=== PATIENT | female | born 1985 | race African-American/Black ===

== ENCOUNTER 2018-04-24 19:59 | Emergency (ER) | payer BC ==
[2018-04-24] MEDS ORDERED: IBUPROFEN 800 MG TABLET PO ONE (21:44)
--- NOTE | 2018-04-24 22:06 | ER Document Report ---
HPI - HPI Patient complains to provider of: Fever Pain Level: 5 Context: Patient is a 33-year-old female presenting to the emergency department complaining of a fever for the last 3 days. Patient states T-max was 102.7 Fahrenheit at home prior to arrival. Patient states last time she took any antipyretics was at 1630 today. Patient also admits to a cough, congestion, headache, body aches. Patient states she also feels as though sometimes it is hard to take a deep breath. Patient stated on day 1 of fever she did have one episode of nonbloody diarrhea. Patient denies any nausea or vomiting. Patient does admit to dysuria today, denies any vaginal discharge. Patient denies chest pain, abdominal pain. Past medical history: None Medications: None Allergies: None Surgical history: section x2 Patient denies illicit drug use, cigarette smoking, admits to occasional EtOH use - CONSTITUTIONAL Constitutional: REPORTS: Fever, Chills - REPRODUCTIVE Reproductive: DENIES: : Past Medical History - General Information source: Patient - Social History Smoking Status: Never Smoker Chew tobacco use (# tins/day): No Frequency of alcohol use: Occasional Drug Abuse: None Lives with: Family Family History: Reviewed & Not Pertinent Patient has suicidal ideation: No Patient has homicidal ideation: No Renal/ Medical History: Denies: Hx Peritoneal Dialysis Past Surgical History: Reports: Hx Section - X2 - Immunizations Hx Diphtheria, Pertussis, Tetanus Vaccination: Yes Vertical Provider Document - CONSTITUTIONAL Agree With Documented VS: Yes Notes: GENERAL: Alert, interacts well. No acute distress. HEAD: Normocephalic, atraumatic. No frontal or maxillary sinus tenderness EYES: Pupils equal, round, and reactive to light. Extraocular movements intact. ENT: Oral mucosa moist, tongue midline. Nares patent, swollen turbinates bilaterally, TM's intact, nonerythematous, nonbulging. Pharynx minorly erythematous, no palatal petechiae or exudate noted NECK: Full range of motion. Supple. Trachea midline. No lymphadenopathy appreciated LUNGS: Clear to auscultation bilaterally, no wheezes, rales, or rhonchi. No respiratory distress. HEART: Tachycardic rate and rhythm. No murmur ABDOMEN: Soft, non-tender. Non-distended. Bowel sounds present in all 4 quadrants. EXTREMITIES: Moves all 4 extremities spontaneously. No edema, normal radial and dorsalis pedis pulses bilaterally. No cyanosis. BACK: no cervical, thoracic, lumbar midline tenderness. No saddle anesthesia, normal distal neurovascular exam. No CVA tenderness bilaterally NEUROLOGICAL: Alert and oriented x3. Normal speech. cranial nerves II through XII grossly intact PSYCH: Normal affect, normal mood. SKIN: Warm, dry, normal turgor. No rashes or lesions noted. - INFECTION CONTROL TRAVEL OUTSIDE OF THE [place] IN LAST 30 DAYS: No Course - Re-evaluation Re-evalutation: 04/24/18 23:05 Discussed with patient at bedside urinary tract infection diagnosis. Also discussed upper respiratory infection. Discussed home treatments for same. Patient states she feels a lot better after medication administration in the emergency room. Patient was also able to drink a large bottle of Gatorade while in the emergency department. Close return precautions discussed - Vital Signs Vital signs: Temp Pulse Resp BP Pulse Ox 103.0 F H 120 H 18 114/62 100 04/24/18 20:13 04/24/18 20:13 04/24/18 20:13 04/24/18 20:13 04/24/18 20:13 Discharge - Discharge Clinical Impression: Viral syndrome Upper respiratory infection Qualifiers: URI type: unspecified viral URI Qualified Code(s): J06.9 - Acute upper respiratory infection, unspecified Urinary tract infection Qualifiers: Urinary tract infection type: acute cystitis Hematuria presence: with hematuria Qualified Code(s): N30.01 - Acute cystitis with hematuria Condition: Stable Disposition: HOME, SELF-CARE Instructions: Acetaminophen, Cephalexin ([facility]), Upper Respiratory Illness ([facility]) , Urinary Tract Infection ([facility]), Viral Syndrome ([facility]) Additional Instructions: You have been seen and treated in the emergency department for an upper respiratory infection. These are caused by viruses so they do not respond to antibiotics. You should take prescription medications as prescribed. You should also stay well-hydrated and get plenty of rest. Please make an appointment with your primary care provider in the next 24-48 hours. Please return to the emergency room for any other worsening symptoms. Upper respiratory infections caused by viruses can last anywhere from 7-10 days. You have also been seen and treated in the emergency department for a urinary tract infection. Please take antibiotics as prescribed. Please return to the emergency room for any other worsening symptoms Prescriptions: Benzonatate [Tessalon Perles 100 mg Capsule] 100 mg PO Q8HP PRN #40 capsule PRN Reason: Cephalexin Monohydrate [Keflex 500 mg Capsule] 500 mg PO BID 7 Days #14 capsule Ibuprofen [Motrin 800 mg Tablet] 800 mg PO Q8H PRN #30 tab PRN Reason: Mometasone Furoate [Nasonex] 1 spray NS Q12 #1 spray.pump Forms: Return to Work
--- NOTE | 2018-04-24 22:37 | RADIOLOGY REPORT (SQ) ---
EXAM DESCRIPTION: XR CHEST 2 VIEWS COMPLETED DATE/TME: 04/24/2018 21:55 CLINICAL HISTORY: 33 years, Female, SOB COMPARISON: None. NUMBER OF VIEWS: 2 TECHNIQUE: Frontal and lateral views of the chest LIMITATIONS: None. FINDINGS: The heart size is normal. Lungs are clear. No pneumothorax IMPRESSION: Negative chest 2010 [facility] [employer]- All Rights Reserved
[2018-04-24 22:55] LABS: APPEARANCE,URINE SLIGHTLY-CLOUDY; BILIRUBIN,URINE NEGATIVE (NEGATIVE); COLOR,URINE AMBER; GLUCOSE, URINE NEGATIVE (NEGATIVE); KETONES,URINE NEGATIVE (NEGATIVE); LEUKOCYTE ESTERASE,URINE LARGE (NEGATIVE); NITRITE,URINE POSITIVE (NEGATIVE); PROTEIN,URINE 30 mg/dL (NEGATIVE); URINE SPECIFIC GRAVITY 1.025
[2018-04-24 23:32] VITALS: BP 100/62
== END 2018-04-24 23:15 | disposition home or self-care (01) ==
LOC: ER 19:59
DX: J06.9 Acute upper respiratory infection, unspecified (principal); N30.01 Acute cystitis with hematuria; B34.9 Viral infection, unspecified; R50.9 Fever, unspecified; R05 Cough; R09.81 Nasal congestion; R51 Headache; M79.10 Myalgia, unspecified site; R19.7 Diarrhea, unspecified
CPT/HCPCS: 71046; 81001; 81025; 99284

== ENCOUNTER → 2018-04-27 | Outpatient (CLI) | payer BC ==
[2018-04-27 14:46] LABS: ABSOLUTE LYMPHOCYTES (AUTO) 1.3 10^3/uL (0.5-4.7); ABSOLUTE MONOCYTES (AUTO) 0.3 10^3/uL (0.1-1.4); ABSOLUTE NEUT (AUTO) 5.9 10^3/uL (1.7-8.2); BASOPHILS % (AUTO) 0.3 % (0-2); EOSINOPHILS % (AUTO) 0.1 % (0-6); HEMATOCRIT 35.3 % (36.0-47.0); LYMPHOCYTES % (AUTO) 16.9 % (13-45); MEAN CORPUSCULAR VOLUME 83 fl (80-97); MONOCYTES % (AUTO) 4.4 % (3-13); PLATELET COUNT 200 10^3/uL (150-450); RED BLOOD COUNT 4.28 10^6/uL (3.72-5.28); RED CELL DISTRIBUTION WIDTH 13.8 % (11.5-14.0); SEGMENTED NEUTROPHILS % (AUTO) 78.3 % (42-78); TOTAL CELLS COUNTED % (AUTO) 100 %; WHITE BLOOD COUNT 7.5 10^3/uL (4.0-10.5)
[2018-04-27 15:05] LABS: A TYPE INFLUENZA AG NEGATIVE (NEGATIVE); B INFLUENZA AG NEGATIVE (NEGATIVE)
== END ==
LOC: OD 13:43
PROVIDERS: ATTEND Nurse Practitioner Acute Care
DX: R50.9 Fever, unspecified (principal); M54.5 Low back pain
CPT/HCPCS: 36415; 85025; 87040; 87086; 87804

== ENCOUNTER 2018-04-29 22:24 | Emergency (ER) | payer BC ==
[2018-04-29] MEDS ORDERED: IBUPROFEN 800 MG TABLET PO ONE (23:05)
[2018-04-29] MEDS ORDERED: NORMAL SALINE 1000 ML 1,000 ML IV ONE (23:06)
--- NOTE | 2018-04-29 23:13 | ER Document Report ---
ED Fever - General Chief Complaint: Fever Stated Complaint: WEAKNESS Time Seen by Provider: 04/29/18 23:02 Notes: Patient is a 33-year-old female presenting to the emergency department complaining of a fever for the last 7 days. Patient states T-max was 103 Fahrenheit at home prior to arrival. Patient states last time she took any antipyretics was at 1600 today. Patient also admits to a cough, congestion, headache, body aches. Patient states she also feels as though sometimes it is hard to take a deep breath. Patient stated on day 1 of fever she did have one episode of nonbloody diarrhea. Patient denies any nausea or vomiting. Patient does admit to dysuria today, denies any vaginal discharge. Patient denies chest pain, abdominal pain. Past medical history: None Medications: None Allergies: None Surgical history: section x2 Patient denies illicit drug use, cigarette smoking, admits to occasional EtOH use TRAVEL OUTSIDE OF THE [place] IN LAST 30 DAYS: No - Related Data Allergies/Adverse Reactions: No Known Allergies Allergy (Verified 05/28/15 13:15) Past Medical History - General Information source: Patient - Social History Smoking Status: Never Smoker Frequency of alcohol use: None Drug Abuse: None Lives with: Family Family History: Reviewed & Not Pertinent Patient has suicidal ideation: No Patient has homicidal ideation: No Renal/ Medical History: Denies: Hx Peritoneal Dialysis Past Surgical History: Reports: Hx Section - X2, Hx Tubal Ligation - Immunizations Hx Diphtheria, Pertussis, Tetanus Vaccination: Yes Review of Systems - Review of Systems Constitutional: See HPI EENT: See HPI Cardiovascular: See HPI Respiratory: See HPI Gastrointestinal: See HPI Genitourinary: See HPI Female Genitourinary: See HPI Musculoskeletal: No symptoms reported Skin: No symptoms reported Hematologic/Lymphatic: No symptoms reported Neurological/Psychological: No symptoms reported Physical Exam - Vital signs Vitals: Temp Pulse Resp BP Pulse Ox 103.1 F H 110 H 16 124/63 99 04/29/18 22:43 04/29/18 22:43 04/29/18 22:43 04/29/18 22:43 04/29/18 22:43 - Notes Notes: GENERAL: Alert, interacts well. No acute distress. HEAD: Normocephalic, atraumatic. No frontal or maxillary sinus tenderness EYES: Pupils equal, round, and reactive to light. Extraocular movements intact. ENT: Oral mucosa moist, tongue midline. Nares patent, TM's intact nonerythematous, nonbulging NECK: Full range of motion. Supple. Trachea midline. No lymphadenopathy appreciated no nuchal rigidity noted LUNGS: Clear to auscultation bilaterally apices, no wheezes, rales. No respiratory distress. Rhonchi heard left lower lobe, left upper lobe clear. No wheezes heard throughout HEART: Tachycardic rate and rhythm. No murmur ABDOMEN: Soft, non-tender. Non-distended. Bowel sounds present in all 4 quadrants. EXTREMITIES: Moves all 4 extremities spontaneously. No edema, normal radial and dorsalis pedis pulses bilaterally. No cyanosis. BACK: no cervical, thoracic, lumbar midline tenderness. No saddle anesthesia, normal distal neurovascular exam. No CVA tenderness bilaterally NEUROLOGICAL: Alert and oriented x3. Normal speech. cranial nerves II through XII grossly intact PSYCH: Normal affect, normal mood. SKIN: Warm, dry, normal turgor. No rashes or lesions noted. Course - Re-evaluation Re-evalutation: Initially patient was denying a headache but states she does have a history of migraines. Nurse brings to my attention that the patient states she thinks she is developing a migraine and is requesting medication for same. Medications administered relieved patient's headache she is currently headache free. Continues without nuchal rigidity. Full range of motion of her head and neck without difficulty. Patient's labs reveal leukocytosis of 11.3. Sodium is 134 2 L of normal saline solution were also given. Fever has resolved with treatments in the emergency room. Discussed chest x-ray results with the patient at bedside. Discussed need to continue antibiotics for urinary tract infection which she was diagnosed with upon last visit and starting new antibiotics. Close return precautions discussed. Patient leaves the emergency room afebrile and not tachycardic. - Vital Signs Vital signs: Temp Pulse Resp BP Pulse Ox 99.4 F 110 H 22 H 102/66 98 04/30/18 01:19 04/29/18 22:46 04/30/18 01:19 04/30/18 01:19 04/30/18 01:19 - Laboratory Result Diagrams: 04/29/18 23:00 04/29/18 23:00 Laboratory results interpreted by me: 04/29/18 04/29/18 04/29/18 23:00 23:00 23:46 WBC 11.3 H Hgb 10.6 L Hct 31.4 L Seg Neutrophils % 83.4 H Lymphocytes % 12.7 L Absolute Neutrophils 9.4 H Sodium 134.0 L Chloride 94 L Glucose 130 H Calcium 8.3 L AST 41 H Urine Ketones TRACE H Urine Blood SMALL H Discharge - Discharge Clinical Impression: Pneumonia Qualifiers: Pneumonia type: due to unspecified organism Laterality: left Lung location: lower lobe of lung Qualified Code(s): J18.1 - Lobar pneumonia, unspecified organism Condition: Stable Disposition: HOME, SELF-CARE Instructions: Fever ([facility]), Pneumonia ([facility]) Additional Instructions: You should continue to take antibiotics for your urinary tract infection. You should also take the antibiotics I prescribed tonight for pneumonia. Please continue to take Tylenol and Motrin for fevers at home. Please make sure you are staying well-hydrated and getting plenty of rest. Please return to the emergency room for any other concerning symptoms. Prescriptions: Doxycycline Hyclate 100 mg PO BID #14 capsule Forms: Return to Work Referrals: FABBY MOLINA NP [NURSE PRACTITIONER] - Follow up as needed
[2018-04-29 23:44] LABS: ABSOLUTE LYMPHOCYTES (AUTO) 1.4 10^3/uL (0.5-4.7); ABSOLUTE MONOCYTES (AUTO) 0.4 10^3/uL (0.1-1.4); ABSOLUTE NEUT (AUTO) 9.4 10^3/uL (1.7-8.2); BASOPHILS % (AUTO) 0.4 % (0-2); EOSINOPHILS % (AUTO) 0.1 % (0-6); HEMATOCRIT 31.4 % (36.0-47.0); HEMOGLOBIN 10.6 g/dL (12.0-15.5); LYMPHOCYTES % (AUTO) 12.7 % (13-45); MEAN CORPUSCULAR HEMOGLOBIN 27.6 pg (27.0-33.4); MEAN CORPUSCULAR HGB CONC 33.6 g/dL (32.0-36.0); MEAN CORPUSCULAR VOLUME 82 fl (80-97); MONOCYTES % (AUTO) 3.4 % (3-13); PLATELET COUNT 320 10^3/uL (150-450); RED BLOOD COUNT 3.83 10^6/uL (3.72-5.28); SEGMENTED NEUTROPHILS % (AUTO) 83.4 % (42-78); TOTAL CELLS COUNTED % (AUTO) 100 %; WHITE BLOOD COUNT 11.3 10^3/uL (4.0-10.5)
[2018-04-29 23:53] LABS: A TYPE INFLUENZA AG NEGATIVE (NEGATIVE)
[2018-04-29 23:54] LABS: B INFLUENZA AG NEGATIVE (NEGATIVE)
[2018-04-29 23:55] LABS: ALANINE AMINOTRANSFERASE 29 U/L (9-52); ALBUMIN 3.6 g/dL (3.5-5.0); ALKALINE PHOSPHATASE 106 U/L (38-126); ANION GAP 14 (5-19); ASPARTATE AMINO TRANSFERASE 41 U/L (14-36); BILIRUBIN,DIRECT 0.2 mg/dL (0.0-0.4); BILIRUBIN,TOTAL 0.7 mg/dL (0.2-1.3); BLOOD UREA NITROGEN 8 mg/dL (7-20); CALCIUM 8.3 mg/dL (8.4-10.2); CARBON DIOXIDE 26 mmol/L (22-30); CHLORIDE 94 mmol/L (98-107); GLUCOSE 130 mg/dL (75-110); POTASSIUM 3.6 mmol/L (3.6-5.0); TOTAL PROTEIN 7.6 g/dL (6.3-8.2)
[2018-04-30] MEDS ORDERED: RINGERS SOLUTION,LACTATED 1,000 ML IV ONE (00:05)
[2018-04-30 00:18] LABS: APPEARANCE,URINE SLIGHTLY-CLOUDY; BILIRUBIN,URINE NEGATIVE (NEGATIVE); COLOR,URINE YELLOW; GLUCOSE, URINE NEGATIVE (NEGATIVE); KETONES,URINE TRACE mg/dL (NEGATIVE); LEUKOCYTE ESTERASE,URINE NEGATIVE (NEGATIVE); NITRITE,URINE NEGATIVE (NEGATIVE); PROTEIN,URINE NEGATIVE (NEGATIVE); UROBILINOGEN,URINE NEGATIVE mg/dL (<2.0)
[2018-04-30] MEDS ORDERED: DIPHENHYDRAMINE HCL 50 MG/ML VIAL IV ONE (00:30)
[2018-04-30] MEDS ORDERED: KETOROLAC TROMETHAMINE INJ/PF 30 MG/1 ML SDV IV ONE (00:30)
[2018-04-30] MEDS ORDERED: PROCHLORPERAZINE EDISYLATE INJ 10 MG/2 ML VIAL IV ONE (00:31)
--- NOTE | 2018-04-30 00:56 | RADIOLOGY REPORT (SQ) ---
EXAM DESCRIPTION: XR CHEST 2 VIEWS COMPLETED DATE/TME: 04/29/2018 23:05 CLINICAL HISTORY: 33 years, Female, sob COMPARISON: X-ray chest 04/24/2018 NUMBER OF VIEWS: TECHNIQUE: LIMITATIONS: None. FINDINGS: There is left lower lobe infiltrate, compatible with pneumonia. This is a new finding, as compared with the prior chest x-ray. The lungs are otherwise clear. The heart and mediastinum are unremarkable Pulmonary vascularity appears normal. IMPRESSION: Left lower lobe pneumonia. 2010 [facility] [employer]- All Rights Reserved
[2018-04-30] MEDS ORDERED: DOXYCYCLINE HYCLATE 100 MG TABLET PO ONE (01:19)
[2018-04-30 01:22] VITALS: BP 102/66
== END 2018-04-30 01:33 | disposition home or self-care (01) ==
LOC: ER 22:24
DX: J18.1 Lobar pneumonia, unspecified organism (principal); N39.0 Urinary tract infection, site not specified; R50.9 Fever, unspecified; R05 Cough; R51 Headache; R19.7 Diarrhea, unspecified; R30.0 Dysuria; R00.0 Tachycardia, unspecified
CPT/HCPCS: 99284; 96361; 96374; 96375; 36415; 87040; 87070; 87086; 87880; 83605; 85025; 81025; 87088; 80053; 81001; 87804; 71046; J1200; J1885; J0780; J7030; J7120